=== PATIENT | male | born 1990 | race Caucasian/White ===

== ENCOUNTER 2018-01-02 18:37 | Emergency (ER) | payer BC ==
[2018-01-02] MEDS ORDERED: Benzocaine 20% Topical Spray UD MUCMEM ONE (18:49)
[2018-01-02] MEDS ORDERED: Lidocaine 2% Viscous Solution 15 ML Cup PO ONE (18:49)
--- NOTE | 2018-01-02 18:57 | EDM.PDOC ---
ED HPI GENERAL MEDICAL PROBLEM - General Chief Complaint: ENT Problem Stated Complaint: TOOTHACHE Time Seen by Provider: 01/02/18 18:45 Source of Information: Reports: Patient History Limitations: Reports: No Limitations - History of Present Illness INITIAL COMMENTS - FREE TEXT/NARRATIVE: HISTORY AND PHYSICAL: History of present illness: Patient is a 27-year-old male who presents to the emergency room with complaints of left lower jaw/dental pain and swelling is 2 weeks. He does have an appointment with his dentist on 01/18/2018 as he believes this is an abscess. His is at the bedside and states she is concerned he has an "infection" and are requesting antibiotics. He denies any fever, chills, chest pain, shortness of breath or cough. Denies any ear or throat pain. No GI or symptoms. Review of systems: As per history of present illness and below otherwise all systems reviewed and negative. Past medical history: As per history of present illness and as reviewed below otherwise noncontributory. Surgical history: As per history of present illness and as reviewed below otherwise noncontributory. Social history: No reported history of drug or alcohol abuse. Family history: As per history of present illness and as reviewed below otherwise noncontributory. Physical exam: General: Well-developed and well-nourished 37-year-old male. Alert and oriented. Nontoxic appearing and in no acute distress. HEENT: Atraumatic, normocephalic, pupils equal and reactive bilaterally, negative for conjunctival pallor or scleral icterus, mucous membranes moist, or dental health noted with mild erythema noted to the gumline along #19-18 tooth with decay. His throat is clear, neck supple, nontender, trachea midline. No drooling or trismus noted. No meningeal signs Lungs: Clear to auscultation, breath sounds equal bilaterally, chest nontender. Heart: S1S2, regular rate and rhythm without overt murmur Abdomen: Soft, nondistended, nontender. Negative for masses or hepatosplenomegaly. Negative for costovertebral tenderness. Pelvis: Stable nontender. Genitourinary: Deferred. Rectal: Deferred. Skin: Intact, warm, dry. No lesions or rashes noted. Extremities: Atraumatic, negative for cords or calf pain. Neurovascular unremarkable. Neuro: Awake, alert, oriented. Cranial nerves II through XII unremarkable. Cerebellum unremarkable. Motor and sensory unremarkable throughout. Exam nonfocal. Notes: Encouraged patient to keep his dental appointment. Education education was completed. Supportive care measures were reviewed and discussed. He is agreeable to plan of care and denies any further questions at this time. Diagnostics: [] Therapeutics: Dental Abscess Impression: 1. Please take the antibiotic as prescribed. 2. Tylenol and/or ibuprofen as needed for pain management. Tramadol for moderate to severe pain. This medication may cause drowsiness a do not take it will driving her needing to be functioning outside of the house. Use the topical "Dental Balls" as directed. 3. Keep your dentist appointment. Return to the ED as needed and as discussed. Plan: [] Definitive disposition and diagnosis as appropriate pending reevaluation and review of above. Left Lower Oral/Mouth Pain Score (Numeric/FACES): 8 - Related Data Allergies Allergy/AdvReac Type Severity Reaction Status Date / Time No Known Allergies Allergy Verified 01/02/18 18:49 Home Meds: Home Meds . [No Known Home Meds] 01/02/18 [History] ED ROS ENT - Review of Systems Review Of Systems: ROS reveals no pertinent complaints other than HPI. ED EXAM, ENT - Physical Exam Exam: See Below (See dictation) Course - Vital Signs Last Recorded V/S: Last Vital Signs Temp 97.8 F 01/02/18 18:46 Pulse 91 01/02/18 18:46 Resp 18 01/02/18 18:46 BP 139/83 01/02/18 18:46 Pulse Ox 98 01/02/18 18:46 - Orders/Labs/Meds Meds: Medications Discontinued Medications Generic Name Dose Route Start Last Admin Trade Name Freq PRN Reason Stop Dose Admin Benzocaine 2 each 01/02/18 18:49 01/02/18 19:07 Hurricaine One 20% MUCMEM 01/02/18 18:50 2 each ONETIME ONE Administration Lidocaine HCl 15 ml 01/02/18 18:49 01/02/18 19:07 Xylocaine 2% Viscous PO 01/02/18 18:50 15 ml ONETIME ONE Administration Departure - Departure Time of Disposition: 18:57 Disposition: Home, Self-Care 01 Clinical Impression: Dental abscess - Discharge Information Instructions: Dental Abscess, [id number] Referrals: PCP,None [Primary Care Provider] - Forms: ED Department Discharge Additional Instructions: The following information is given to patients seen in the emergency department who are being discharged to home. This information is to outline your options for follow-up care. We provide all patients seen in our emergency department with a follow-up referral. The need for follow-up, as well as the timing and circumstances, are variable depending upon the specifics of your emergency department visit. If you don't have a primary care physician on staff, we will provide you with a referral. We always advise you to contact your personal physician following an emergency department visit to inform them of the circumstance of the visit and for follow-up with them and/or the need for any referrals to a consulting specialist. The emergency department will also refer you to a specialist when appropriate. This referral assures that you have the opportunity for follow-up care with a specialist. All of these measure are taken in an effort to provide you with optimal care, which includes your follow-up. Under all circumstances we always encourage you to contact your private physician who remains a resource for coordinating your care. When calling for follow-up care, please make the office aware that this follow-up is from your recent emergency room visit. If for any reason you are refused follow-up, please contact the [facility] Emergency Department at and asked to speak to the emergency department charge nurse. [facility] Primary Care [address] [place] [phone] 1. Please take the antibiotic as prescribed. 2. Tylenol and/or ibuprofen as needed for pain management. Tramadol for moderate to severe pain. This medication may cause drowsiness a do not take it will driving her needing to be functioning outside of the house. Use the topical "Dental Balls" as directed. 3. Keep your dentist appointment. Return to the ED as needed and as discussed.
== END 2018-01-02 19:11 | disposition home or self-care (01) ==
LOC: MW.ED 18:37
DX: K04.7 Periapical abscess without sinus (principal)
CPT/HCPCS: 99282; A9270

== ENCOUNTER 2018-05-03 16:00 | Emergency (ER) | payer BC ==
[2018-05-03] MEDS ORDERED: Benzocaine 20% Topical Spray UD MUCMEM ONE (16:39)
[2018-05-03] MEDS ORDERED: Lidocaine 2% Viscous Solution 15 ML Cup PO ONE (16:39)
--- NOTE | 2018-05-03 16:40 | EDM.PDOC ---
ED HPI GENERAL MEDICAL PROBLEM - General Chief Complaint: General Stated Complaint: TOOTHACHE Time Seen by Provider: 05/03/18 16:11 Source of Information: Reports: Patient History Limitations: Reports: No Limitations - History of Present Illness INITIAL COMMENTS - FREE TEXT/NARRATIVE: History of present illness: []Patient's had dental pain for one month has an appointment in [place] with a dentist at the end of May. He should states he cannot take the pain has been taking ibuprofen continuously. Also has had a rash on his chest for the past 6 months. He states it doesn't bother him at is not itchy and full. Patient denies any fevers, chills, vomiting or diarrhea. Review of systems: As per history of present illness and below otherwise all systems reviewed and negative. Past medical history: As per history of present illness and as reviewed below otherwise noncontributory. Surgical history: As per history of present illness and as reviewed below otherwise noncontributory. Social history: No reported history of drug or alcohol abuse. Family history: As per history of present illness and as reviewed below otherwise noncontributory. Physical exam: General: Well developed, well nourished in NAD HEENT: Atraumatic, normocephalic, pupils reactive, negative for conjunctival pallor or scleral icterus, mucous membranes moist, throat clear, neck supple, nontender, trachea midline. Lungs: Anterior chest has flat, blanching, irregular, blotchy, mildly erythematous rash. No signs of infection or drainage. Clear to auscultation, breath sounds equal bilaterally, chest nontender. Heart: S1S2, regular, negative for clicks, rubs, or JVD. Abdomen: Soft, nondistended, nontender. Negative for masses or hepatosplenomegaly. Negative for costovertebral tenderness. Pelvis: Stable nontender. Genitourinary: Deferred. Rectal: Deferred. Extremities: Atraumatic, negative for cords or calf pain. Neurovascular unremarkable. Neuro: Awake, alert, oriented. Cranial nerves II through XII unremarkable. Cerebellum unremarkable. Motor and sensory unremarkable throughout. Exam nonfocal. Skin:warm and dry Diagnostics: None Therapeutics: None ED Course: Unremarkable Impression: Contact dermatitis, chronic dental pain with dental caries Prescriptions: Dental balls Plan: Follow-up with dentist or primary care as needed. Definitive disposition and diagnosis as appropriate pending reevaluation and review of above. dental, broken tooth Pain Score (Numeric/FACES): 9 - Related Data Allergies Allergy/AdvReac Type Severity Reaction Status Date / Time aspirin Allergy Abdominal Verified 05/03/18 16:21 Pain Home Meds: Home Meds Multivitamin [Multivitamins] 1 tab PO DAILY 05/03/18 [History] Past Medical History - Past Health History Medical/Surgical History: Denies Medical/Surgical History - Infectious Disease History Infectious Disease History: Reports: Herpes - Past Surgical History HEENT Surgical History: Reports: Other (See Below) Other HEENT Surgeries/Procedures: Lazy eye R - repaired Social & Family History - Family History Family Medical History: Noncontributory - Tobacco Use Smoking Status *Q: Former Smoker Years of Tobacco use: 5 Packs/Tins Daily: 1 Used Tobacco, but Quit: No - Caffeine Use Caffeine Use: Reports: Soda - Recreational Drug Use Recreational Drug Use: No ED ROS GENERAL - Review of Systems Review Of Systems: ROS reveals no pertinent complaints other than HPI. ED EXAM, GENERAL - Physical Exam Exam: See Below (See history of present illness) Course - Vital Signs Last Recorded V/S: Last Vital Signs Temp 97.6 F 05/03/18 16:18 Pulse 98 05/03/18 16:18 Resp 16 05/03/18 16:18 BP 144/81 H 05/03/18 16:18 Pulse Ox 97 05/03/18 16:18 Departure - Departure Time of Disposition: 16:39 Disposition: Home, Self-Care 01 Condition: Good Clinical Impression: Chronic dental pain - Discharge Information *PRESCRIPTION DRUG MONITORING PROGRAM REVIEWED*: No *COPY OF PRESCRIPTION DRUG MONITORING REPORT IN PATIENT JOY: No Referrals: PCP,None [Primary Care Provider] - Additional Instructions: The following information is given to patients seen in the emergency department who are being discharged to home. This information is to outline your options for follow-up care. We provide all patients seen in our emergency department with a follow-up referral. The need for follow-up, as well as the timing and circumstances, are variable depending upon the specifics of your emergency department visit. If you don't have a primary care physician on staff, we will provide you with a referral. We always advise you to contact your personal physician following an emergency department visit to inform them of the circumstance of the visit and for follow-up with them and/or the need for any referrals to a consulting specialist. The emergency department will also refer you to a specialist when appropriate. This referral assures that you have the opportunity for follow-up care with a specialist. All of these measure are taken in an effort to provide you with optimal care, which includes your follow-up. Under all circumstances we always encourage you to contact your private physician who remains a resource for coordinating your care. When calling for follow-up care, please make the office aware that this follow-up is from your recent emergency room visit. If for any reason you are refused follow-up, please contact the Emergency Department at and asked to speak to the emergency department charge nurse. Primary Care [address] [place] [phone]
== END 2018-05-03 16:53 | disposition home or self-care (01) ==
LOC: MW.ED 16:00
DX: K02.9 Dental caries, unspecified (principal); L25.9 Unspecified contact dermatitis, unspecified cause; G89.29 Other chronic pain; Z88.6 Allergy status to analgesic agent; Z87.891 Personal history of nicotine dependence
CPT/HCPCS: 99282; A9270

== ENCOUNTER 2018-05-05 18:37 | Emergency (ER) | payer BC ==
--- NOTE | 2018-05-05 19:01 | EDM.PDOC ---
ED HPI GENERAL MEDICAL PROBLEM - General Stated Complaint: TOOTH ACHE Time Seen by Provider: 05/05/18 18:59 Source of Information: Reports: Patient History Limitations: Reports: No Limitations - History of Present Illness INITIAL COMMENTS - FREE TEXT/NARRATIVE: HISTORY AND PHYSICAL: History of present illness: 27-year-old male presenting to emergency department with chief complaint of left back tooth pain 2-3 days. Patient was recently seen on 05/03/18 for similar symptoms and given dental balls for chronic dental caries. Patient does have a dental appointment at the end of May in [place]. Patient states that he was told at that time to return to emergency department if he started having any pain. Patient denies any associated fever, chills, nausea, vomiting, diarrhea. States his pain is currently an 8 out of 10 and primarily located at the left lower back tooth. It is sharp and constant. On examination there is poor dentition and caries with chipping of the left #18 tooth. There is some surrounding erythema and swelling of the gum. Review of systems: As per history of present illness and below otherwise all systems reviewed and negative. Past medical history: As per history of present illness and as reviewed below otherwise noncontributory. Surgical history: As per history of present illness and as reviewed below otherwise noncontributory. Social history: No reported history of drug or alcohol abuse. Family history: As per history of present illness and as reviewed below otherwise noncontributory. Physical exam: Please see above H&P HEENT: Atraumatic, normocephalic, pupils reactive, negative for conjunctival pallor or scleral icterus, mucous membranes moist, throat clear, neck supple, nontender, trachea midline. Lungs: Clear to auscultation, breath sounds equal bilaterally, chest nontender. Heart: S1S2, regular, negative for clicks, rubs, or JVD. Abdomen: Soft, nondistended, nontender. Negative for masses or hepatosplenomegaly. Negative for costovertebral tenderness. Pelvis: Stable nontender. Genitourinary: Deferred. Rectal: Deferred. Extremities: Atraumatic, negative for cords or calf pain. Neurovascular unremarkable. Neuro: Awake, alert, oriented. Cranial nerves II through XII unremarkable. Cerebellum unremarkable. Motor and sensory unremarkable throughout. Exam nonfocal. Diagnostics: [] Therapeutics: Dental balls Augmentin 875 by mouth twice a day 7 days Impression: Left tooth pain Dental abscess Plan: On examination there is swelling surrounding the left tooth #18 indicative of a beginning dental abscess. Patient was given dental balls as well as Augmentin. He does have a scheduled appointment with a dentist in [place] at the in May. He was instructed also to follow-up with his primary care provider and return emergency department if new or worsening symptoms. Definitive disposition and diagnosis as appropriate pending reevaluation and review of above. Left Tooth/Teeth Pain Score (Numeric/FACES): 9 - Related Data Allergies Allergy/AdvReac Type Severity Reaction Status Date / Time aspirin Allergy Abdominal Verified 05/05/18 19:00 Pain Home Meds: Home Meds Multivitamin [Multivitamins] 1 tab PO DAILY 05/03/18 [History] Past Medical History - Past Health History Medical/Surgical History: Denies Medical/Surgical History - Infectious Disease History Infectious Disease History: Reports: Herpes - Past Surgical History HEENT Surgical History: Reports: Other (See Below) Other HEENT Surgeries/Procedures: Lazy eye R - repaired Social & Family History - Family History Family Medical History: Noncontributory - Caffeine Use Caffeine Use: Reports: Soda ED ROS GENERAL - Review of Systems Review Of Systems: ROS reveals no pertinent complaints other than HPI. ED EXAM, GENERAL - Physical Exam Exam: See Below Course - Vital Signs Last Recorded V/S: Last Vital Signs Temp 98.7 F 05/05/18 18:58 Pulse 106 H 05/05/18 18:58 Resp 20 05/05/18 18:58 BP 150/93 H 05/05/18 18:58 Pulse Ox 97 05/05/18 18:58 - Orders/Labs/Meds Meds: Medications Discontinued Medications Generic Name Dose Route Start Last Admin Trade Name Freq PRN Reason Stop Dose Admin Benzocaine 2 each 05/05/18 19:07 Hurricaine One 20% MUCMEM 05/05/18 19:08 ONETIME ONE Ketorolac Tromethamine 60 mg 05/05/18 19:07 Toradol IM 05/05/18 19:08 ONETIME ONE Lidocaine HCl 15 ml 05/05/18 19:07 Xylocaine 2% Viscous PO 05/05/18 19:08 ONETIME ONE Departure - Departure Time of Disposition: 19:14 Disposition: Home, Self-Care 01 Condition: Good Clinical Impression: Tooth pain, Dental abrasion - Discharge Information Referrals: PCP,None [Primary Care Provider] - Additional Instructions: My general discharge The following information is given to patients seen in the emergency department who are being discharged to home. This information is to outline your options for follow-up care. We provide all patients seen in our emergency department with a follow-up referral. The need for follow-up, as well as the timing and circumstances, are variable depending upon the specifics of your emergency department visit. If you don't have a primary care physician on staff, we will provide you with a referral. We always advise you to contact your personal physician following an emergency department visit to inform them of the circumstance of the visit and for follow-up with them and/or the need for any referrals to a consulting specialist. The emergency department will also refer you to a specialist when appropriate. This referral assures that you have the opportunity for follow-up care with a specialist. All of these measure are taken in an effort to provide you with optimal care, which includes your follow-up. Under all circumstances we always encourage you to contact your private physician who remains a resource for coordinating your care. When calling for follow-up care, please make the office aware that this follow-up is from your recent emergency room visit. If for any reason you are refused follow-up, please contact the [facility] Emergency Department at and asked to speak to the emergency department charge nurse. [facility] Primary Care [address] [place] [phone] Please call the number to follow-up with a primary care provider. Be sure to tell them that you were seen in the emergency department and they wish for you to be seen as soon as possible. Take medication as prescribed. Return to emergency department if any new or worsening symptoms as we discussed.
[2018-05-05] MEDS ORDERED: Ketorolac 60 MG/2 ML SDV IM ONE (19:07)
[2018-05-05] MEDS ORDERED: Benzocaine 20% Topical Spray UD MUCMEM ONE (19:07)
[2018-05-05] MEDS ORDERED: Lidocaine 2% Viscous Solution 15 ML Cup PO ONE (19:07)
== END 2018-05-05 19:32 | disposition home or self-care (01) ==
LOC: MW.ED 18:37
DX: K04.7 Periapical abscess without sinus (principal); Z79.899 Other long term (current) drug therapy; Z88.6 Allergy status to analgesic agent
CPT/HCPCS: 96372; 99283; A9270; J1885; 99282

== ENCOUNTER 2018-12-13 20:41 | Emergency (ER) | payer BC ==
[2018-12-13] MEDS ORDERED: Lidocaine 2% Viscous Solution 15 ML Cup PO ONE (21:00)
[2018-12-13] MEDS ORDERED: Benzocaine 20% Topical Spray UD MUCMEM ONE (21:00)
--- NOTE | 2018-12-13 21:04 | EDM.PDOC ---
ED HPI GENERAL MEDICAL PROBLEM - General Chief Complaint: ENT Problem Stated Complaint: TOOTH ACHE Time Seen by Provider: 12/13/18 20:56 - History of Present Illness INITIAL COMMENTS - FREE TEXT/NARRATIVE: HISTORY AND PHYSICAL: History of present illness: Patient 48-year-old white male who presents with a concern of left lower dental pain been worse over the last several days he denies fever chills nausea vomiting he states he has not sought dental care due to lack of insurance he denies allergies or other concern. Review of systems: As per history of present illness and below otherwise all systems reviewed and negative. Past medical history: As per history of present illness and as reviewed below otherwise noncontributory. Surgical history: As per history of present illness and as reviewed below otherwise noncontributory. Social history: No reported history of drug or alcohol abuse. Family history: As per history of present illness and as reviewed below otherwise noncontributory. Physical exam: HEENT: Atraumatic, normocephalic, pupils reactive, negative for conjunctival pallor or scleral icterus, mucous membranes moist, throat clear, neck supple, nontender, trachea midline. Generally poor dentition with multiple dental caries and secondary dental fractures Lungs: Clear to auscultation, breath sounds equal bilaterally, chest nontender. Heart: S1S2, regular, negative for clicks, rubs, or JVD. Abdomen: Soft, nondistended, nontender. Negative for masses or hepatosplenomegaly. Negative for costovertebral tenderness. Pelvis: Stable nontender. Genitourinary: Deferred. Rectal: Deferred. Extremities: Atraumatic, negative for cords or calf pain. Neurovascular unremarkable. Neuro: Awake, alert, oriented. Cranial nerves II through XII unremarkable. Cerebellum unremarkable. Motor and sensory unremarkable throughout. Exam nonfocal. Diagnostics: None Therapeutics: Dental balls Impression: #1 dentalgia #2 dental caries #3 rule out dental abscess Definitive disposition and diagnosis as appropriate pending reevaluation and review of above. left lower molar Pain Score (Numeric/FACES): 7 - Related Data Allergies Allergy/AdvReac Type Severity Reaction Status Date / Time aspirin Allergy Abdominal Verified 12/13/18 21:00 Pain Home Meds: Home Meds . [No Known Home Meds] 12/13/18 [History] Past Medical History - Past Health History Medical/Surgical History: Denies Medical/Surgical History - Infectious Disease History Infectious Disease History: Reports: Herpes - Past Surgical History HEENT Surgical History: Reports: Other (See Below) Other HEENT Surgeries/Procedures: Lazy eye R - repaired Social & Family History - Family History Family Medical History: Noncontributory - Caffeine Use Caffeine Use: Reports: Soda ED ROS GENERAL - Review of Systems Review Of Systems: ROS reveals no pertinent complaints other than HPI. ED EXAM, GENERAL - Physical Exam Exam: See Below (See dictation) Course - Vital Signs Last Recorded V/S: Last Vital Signs Temp 36.6 C 12/13/18 20:58 Pulse 90 12/13/18 20:58 Resp 18 12/13/18 20:58 BP 132/93 H 12/13/18 20:58 Pulse Ox 97 12/13/18 20:58 - Orders/Labs/Meds Meds: Medications Discontinued Medications Generic Name Dose Route Start Last Admin Trade Name Freq PRN Reason Stop Dose Admin Benzocaine 2 each 12/13/18 21:00 Hurricaine One 20% MUCMEM 12/13/18 21:01 ONETIME ONE Lidocaine HCl 15 ml 12/13/18 21:00 Xylocaine 2% Viscous PO 12/13/18 21:01 ONETIME ONE Departure - Departure Time of Disposition: 21:03 Disposition: Home, Self-Care 01 Condition: Good Clinical Impression: Dentalgia, Dental abscess, Dental caries - Discharge Information Referrals: PCP,None [Primary Care Provider] - Additional Instructions: The following information is given to patients seen in the emergency department who are being discharged to home. This information is to outline your options for follow-up care. We provide all patients seen in our emergency department with a follow-up referral. The need for follow-up, as well as the timing and circumstances, are variable depending upon the specifics of your emergency department visit. If you don't have a primary care physician on staff, we will provide you with a referral. We always advise you to contact your personal physician following an emergency department visit to inform them of the circumstance of the visit and for follow-up with them and/or the need for any referrals to a consulting specialist. The emergency department will also refer you to a specialist when appropriate. This referral assures that you have the opportunity for followup care with a specialist. All of these measure are taken in an effort to provide you with optimal care, which includes your followup. Under all circumstances we always encourage you to contact your private physician who remains a resource for coordinating your care. When calling for followup care, please make the office aware that this follow-up is from your recent emergency room visit. If for any reason you are refused follow-up, please contact the [facility] emergency department at and asked to speak to the emergency department charge nurse. Maria Ines Campos as prescribed follow-up dentist as discussed return as needed
== END 2018-12-13 21:15 | disposition home or self-care (01) ==
LOC: MW.ED 20:41
DX: K04.7 Periapical abscess without sinus (principal); Z88.8 Allergy status to other drugs, medicaments and biological substances
CPT/HCPCS: 99282; A9270